=== PATIENT | male | born 1975 | race American Indian/Alaskan Native ===

== ENCOUNTER 2019-03-03 14:59 | Outpatient (CLI) | payer BC ==
--- NOTE | 2019-03-03 15:50 | XRay Report ---
Lumbosacral spine, 3 views INDICATION: LUMBAGO WITH SCIATICA RIGHT SIDE. COMPARISON: None. IMPRESSION: There is subtle dextrocurvature to the lumbar spine on the AP view. Normal alignment on the lateral view. No significant discogenic DJD or facet arthropathy. No acute osseous or soft tiss ue abnormality. Signer Name: Wilfredo Wallis Jr, MD Signed: 03/03/2019 3:45 PM Workstation Name: [id number]
== END 2019-03-03 15:00 | disposition home or self-care (01) ==
LOC: SPVIMAG 14:59
PROVIDERS: ATTEND Internal Medicine
DX: M43.8X6 Other specified deforming dorsopathies, lumbar region (principal)
CPT/HCPCS: 72100